=== PATIENT | male | born 2000 | race Two or more races ===

== ENCOUNTER 2024-03-19 02:27 | Emergency (ER) | payer OTHER, SELFPAY ==
--- NOTE | ~2024-03-19 | XR_ITS ---
EXAMINATION: XR KNEE, LEFT CLINICAL INFORMATION: Pain after injury COMPARISON: None available. TECHNIQUE: Four views of the left knee. FINDINGS: Osseous alignment is anatomic. Joint spaces appear maintained. No acute fracture is seen. No significant joint effusion. XR/XR knee LT 4V IMPRESSION: No acute findings.
[2024-03-19 02:35] VITALS: BP 136/84; PULSE 81; RESP 18; TEMP 36.6; O2SAT 98; BMI 29.8
[2024-03-19] MEDS: Ibuprofen 600 MG TABLET PO (02:42)
--- NOTE | 2024-03-19 05:00 | PC.NURSE ---
pt from home, a&ox4, respirations even and unlabored. pt reports playing basketball around 430pm, reports jumping and landing on left foot wrong. pt reports since then he has had increasing knee pain, reports inability to bare weight at this time. pt reports having medication in triage which helped with pain. pt awaiting x ray results. cms in tact
[2024-03-19 06:37] VITALS: BP 124/66; PULSE 60; RESP 18; TEMP 36.9; O2SAT 98
--- NOTE | 2024-03-19 07:17 | ED.LOWEXIN ---
HPI - Extremity Injury (Lower) General Chief Complaint: Extremity Injury, Lower Stated Complaint: left knee pain Time Seen by Provider: 03/19/24 07:00 Source: patient Mode of arrival: ambulatory Limitations: no limitations History of Present Illness ED Provider: DR. De La Rosa. HPI Narrative: 23-year-old male otherwise healthy came in for evaluation of left knee pain. 23-year-old male otherwise healthy was playing basketball yesterday patient jumped landed on his left knee 1st complaining of left knee pain, patient is unable to bear weight on his left lower extremity because of the pain, no deformity, patient took ibuprofen that helped his pain, pain is not radiating, localized to the left knee. No headache, no chills, no head injury, no neck pain. Related Data Previous Rx's ?Medication ?Instructions ?Recorded ibuprofen 800 mg tablet 800 mg PO Q8H PRN pain #14 tabs 03/19/24 Allergies Allergy/AdvReac Type Severity Reaction Status Date / Time No Known Allergies Allergy Verified 03/19/24 02:37 Review of Systems Review of Systems: All other systems are reviewed and are negative Constitutional: Reports as per HPI and Reports no additional constitutional complaints Eyes: Reports as per HPI and Reports no additional eye complaints Reports system reviewed and no additional complaints, except as documented Cardiovascular: Reports as per HPI and Reports no additional cardiovascular complaints Respiratory: Reports as per HPI and Reports no additional respiratory complaints Gastrointestinal: Reports as per HPI and Reports no additional gastrointestinal complaints Genitourinary: Reports no additional female genitourinary complaints Musculoskeletal: Reports no additional musculoskeletal complaints Skin/Breast: Reports system reviewed and no additional complaints, except as docu Psychiatric: Reports no additional psychiatric complaints Endocrine: Reports no additional endocrine complaints Hematologic/Lymphatic: Reports no additional hematologic/lymphatic complaints Allergic/Immunologic: Reports no additional allergic/immunologic complaints Reports system reviewed and no additional complaints, except as documented and Reports Abnormal speech present [facility] Social History Social History Alcohol intake: current Alcohol intake frequency: holidays/special occasions only Smoked in Last 30 Days: No Use of substances other than those prescribed or required for medical reasons: Yes Substance Use Type: Marijuana Advance Directives: No Advance Directives Information Provided: Yes Physical Exam Vital Signs: Vital Signs: Last Vital Signs Temp 98.5 F 03/19/24 06:37 Pulse 60 06/10/24 06:37 Resp 18 03/19/24 06:37 BP 124/66 03/19/24 06:37 Pulse Ox 98 03/19/24 06:37 O2 Del Method Room Air 03/19/24 06:37 BMI result Body Mass Index 29.8 Vital signs have been reviewed and appear to be correct. Blood pressure elevated. Heart rate normal. Respiratory rate normal. Temperature normal. Oxygen saturation normal. Appearance: Alert. Oriented X3. No acute distress. Head: Normal external exam. Normocephalic. Atraumatic. No Lopez signs noted. No raccoon eyes noted Eyes: PERRLA. EOMI. Conjunctiva and sclera normal. Eyelids normal. ENT: TM's Normal. Pharynx normal. Uvula midline. Moist mucous membranes. No trismus noted. No drooling noted. No muffled voice noted. Neck: Normal inspection. Neck supple. FROM. No adenopathy. Thyroid Normal. No meningeal signs. No neck mass noted. CVS: Normal heart rate and rhythm. Heart sound normal. No murmurs noted. Pulses normal throughout. Respiratory: No respiratory distress. Painless inspiration. Breath sounds normal. No wheezes/rales/rhonchi noted. Chest nontender. No accessory muscle usage noted or decreased air movement noted. Abdomen: Soft and nontender. Bowel sounds normal in all 4 quadrants. No distention noted. No organomegaly noted. No visible injury noted. Back: No CVA tenderness. Full range of motion noted. Skin: Skin warm and dry. Normal skin color. Normal skin turgor. No rashes/lesions/lacerations noted. Extremities: Left lower extremity exam: Left lower extremities extended, left knee slight swelling, no deformity, tenderness mostly on the anterior aspect of the left knee with no step-off, no deformity, neurovascularly intact, patient is unable to bear weight on the left knee. Neuro: Oriented X 3. Cranial nerve exam: II-XII are grossly intact No motor deficit. No sensory deficit. Reflexes normal. Course Reevaluation(s) Reevaluation #1: Left knee sprain. Knee immobilizer. Crutches and no weight-bearing. Ice. NSAIDs if needed. Follow-up with ortho. Time: 07:20 Medications Administered Discontinued Medications Generic Name Dose Route Start Last Admin Trade Name Freq PRN Reason Stop Dose Admin Ibuprofen 600 mg 03/19/24 02:39 03/19/24 02:42 Ibuprofen 600 Mg Tablet PO 03/19/24 02:40 600 mg ONCE ONE Administration Medical Decision Making Differential Diagnosis Differential Diagnoses: The differential diagnosis associated with the presentation includes (Left knee fracture, left knee dislocation, ligamentous injury, sprain.) Admission/Observation Consideration of admission/observation: Escalation of care including admission/observation considered Independent Interpretation I performed an independent interpretation of an: Plain X-Ray (Left knee: No acute fracture.) Radiology Impression Discussion of test interpretation with radiology: I have reviewed the radiologist's reading. Discharge Plan Discharge Clinical Impression: Left knee sprain Patient Disposition: Home, Self-Care Instructions: Knee Sprain (ED) Prescriptions: New ibuprofen 800 mg tablet 800 mg PO Q8H PRN (Reason: pain) Qty: 14 0RF Referrals: Vaibhav Suresh MD [Physician] - Stand Alone Forms: Work/School Release Print Language: Greenlandic
[2024-03-19 07:53] VITALS: BP 124/66; PULSE 60; RESP 18; TEMP 36.9; O2SAT 98
== END 2024-03-19 07:54 | disposition home or self-care (01) ==
PROVIDERS: Emergency Provider Emergency Medicine
DX: S83.92XA Sprain of unspecified site of left knee, initial encounter (principal); X58.XXXA Exposure to other specified factors, initial encounter; Y93.67 Activity, basketball; Y92.9 Unspecified place or not applicable; Y99.9 Unspecified external cause status
CPT/HCPCS: 73564; 99283; 99284

== ENCOUNTER 2024-03-29 11:59 | Outpatient (REF) | payer OTHER, SELFPAY | END 2024-03-29 12:00 | disposition home or self-care (01) | LOC: HO.HOSX 11:59 | PROVIDERS: Visit Provider Physician Assistant | DX: Z13.89 Encounter for screening for other disorder (principal) ==